=== PATIENT | male | born 1970 | race Caucasian/White ===

== ENCOUNTER 2020-10-19 08:00 | Outpatient (CLI) | payer BC ==
--- NOTE | 2020-10-19 16:10 | XRAY Report ---
PROCEDURE: Thoracic Spine 2 View INDICATIONS: THORACIC BACK PAIN TECHNIQUE: 3 views of the thoracic spine were acquired. COMPARISON: None. FINDINGS: Bones: No fractures or dislocations. No suspicious bony lesions. Visualized ribs are intact. Multil evel endplate osteophytes throughout the thoracic spine are present. Soft tissues: No paravertebral stripe thickening. IMPRESSION: Multilevel degenerative disc disease. No acute fracture. No osseous lesion. If symptoms and/or clinic al suspicion for pathology continue, further assessment with repeat plain films, or advanced imaging (e.g., CT, MRI, or bone scan) is recommended for further assessment. Reviewed by: Jacquelyn Woo MD on 10/19/2020 4:08 PM PDT Approved by: Jacquelyn Woo MD on 10/19/2020 4:08 PM PDT Station ID: [id number]
== END 2020-10-19 23:59 | disposition home or self-care (01) ==
LOC: DI.S 08:00
PROVIDERS: ATTEND Emergency Medicine
DX: M51.34 Other intervertebral disc degeneration, thoracic region (principal)

== ENCOUNTER 2023-03-28 08:00 | Outpatient (CLI) | payer BC, OTHER ==
--- NOTE | 2023-03-28 20:30 | XRAY Report ---
PROCEDURE: Knee 4 View LT INDICATIONS: LEFT KNEE PAIN TECHNIQUE: 2 views of the knee was obtained. COMPARISON: None FINDINGS: Bones: No fractures or dislocations. No suspicious bony lesions. Soft tissues: Moderate knee joint effusion. No suspicious soft tissue calcifications or masses. IMPRESSION: Moderate joint effusion Reviewed by: Hunter Isidro MD on 03/28/2023 7:29 PM AKDT Approved by: Hunter Isidro MD on 03/28/2023 7:29 PM AKDT Station ID: [id number]
== END 2023-03-28 23:59 | disposition home or self-care (01) ==
LOC: DI.S 08:00
PROVIDERS: ATTEND Physician Assistant
DX: M25.562 Pain in left knee (principal); M25.462 Effusion, left knee

== ENCOUNTER 2023-06-27 10:20 | Outpatient (CLI) | payer OTHER ==
[2023-06-27 15:12] LABS: BASOPHILS # (AUTO) 0.1 10^3/uL (0.0-0.1); EOSINOPHILS # (AUTO) 0.3 10^3/uL (0.0-0.7); EOSINOPHILS % (AUTO) 5.7 %; HCT - HEMATOCRIT 47.2 % (42.0-52.0); HGB - HEMOGLOBIN 15.6 g/dL (14.0-18.0); LYMPHOCYTES # (AUTO) 1.5 10^3/uL (1.5-3.5); LYMPHOCYTES % (AUTO) 24.5 %; MEAN CORPUSCULAR HEMOGLOBIN 31.1 pg (27.0-31.0); MEAN CORPUSCULAR HGB CONC 33.1 g/dL (32.0-36.0); MEAN PLATELET VOLUME 11.3 fL (7.4-11.4); MONOCYTES # (AUTO) 0.7 10^3/uL (0.0-1.0); NEUTROPHILS # (AUTO) 3.4 10^3/uL (1.5-6.6); NEUTROPHILS % (AUTO) 57.3 %; PLT - PLATELET COUNT 143 10^3/uL (130-450); RED BLOOD COUNT 5.02 10^6/uL (4.70-6.10); RED CELL DISTRIBUTION WIDTH 12.6 % (12.0-15.0); WHITE BLOOD COUNT 5.9 x10^3/uL (4.8-10.8)
[2023-06-27 15:32] LABS: ALBUMIN 4.6 g/dL (3.2-5.5); ALBUMIN/GLOBULIN RATIO 1.8 (1.0-2.2); ALKALINE PHOSPHATASE 54 IU/L (42-121); ALT ALANINE AMINOTRANSFERASE 24 IU/L (10-60); AST ASPARTATE AMINOTRANSFERASE 31 IU/L (10-42); BILIRUBIN,TOTAL 0.6 mg/dL (0.2-1.0); BUN - BLOOD UREA NITROGEN 22 mg/dL (6-20); CALCIUM 9.7 mg/dL (8.5-10.3); CARBON DIOXIDE - CO2 29 mmol/L (21-32); CHLORIDE 105 mmol/L (101-111); CHOL/HDL RATIO 3.8 (<5.0); CHOLESTEROL 184 mg/dL; CREATININE 1.3 mg/dL (0.6-1.3); GFR - MDRD 58 (>89); GLUCOSE 100 mg/dL (74-104); HDL CHOLESTEROL 49 mg/dL; LDL CHOLESTEROL,CALCULATED 123 mg/dL; LDL/HDL RATIO 2.5 (<3.6); POTASSIUM 4.4 mmol/L (3.5-4.5); SODIUM 138 mmol/L (135-145); TOTAL PROTEIN 7.1 g/dL (6.4-8.9); TRIGLYCERIDES 59 mg/dL (48-352); VLDL CHOLESTEROL 12 mg/dL
[2023-06-27 15:48] LABS: THYROID STIMULATING HORMONE 1.12 uIU/mL (0.34-5.60)
[2023-06-27 20:45] LABS: ESTIMATED AVERAGE GLUCOSE 103 mg/dL (70-100); HEMOGLOBIN A1c% 5.2 % (4.27-6.07)
== END 2023-06-27 10:21 | disposition home or self-care (01) ==
LOC: LAB.S 10:20
PROVIDERS: ATTEND Physician Assistant Medical
DX: Z13.9 Encounter for screening, unspecified (principal)
CPT/HCPCS: 36415; 80053; 80061; 83036; 83721; 84153; 84443; 85025

== ENCOUNTER 2023-10-20 11:19 | Day surgery (SDC) | payer OTHER ==
[2023-10-20] MEDS: LACTATED RINGERS 1,000 ML IV ONE ×2 (11:24→13:55)
--- NOTE | 2023-10-20 12:03 | ANESTHESIA ---
Pre-Anesthesia VS, & Labs - Diagnosis screening - Procedure colonoscopy Height: 6 ft 1 in Weight (kg): 104.8 kg Body Mass Index: 30.4 BMI Classification: Obese - NPO Other (prep as directed) Home Medications and Allergies Home Medications: Ambulatory Orders Dextroamphetamine/Amphetamine [Adderall Xr 10 mg Capsule] 20 mg ORAL DAILY 10/18 Dextroamphetamine/Amphetamine [Adderall Xr 10 mg Capsule] 20 mg ORAL DAILY 10/19/23 Allergies/Adverse Reactions: Allergies Allergy/AdvReac Type Severity Reaction Status Date / Time No Known Drug Allergies Allergy Verified 10/19/23 13:46 Anes History & Medical History - Anesthetic History Anesthesia Complications: reports: No previous complications - Medical History Cardiovascular: reports: None Pulmonary: reports: Sleep apnea Gastrointestinal: reports: None Urinary: reports: None Musculoskeletal: reports: None Endocrine/Autoimmune: reports: None Skin: reports: Other Smoking Status: Never smoker Psychosocial: reports: Alcohol (one a week) - Surgical History Orthopedic: reports: ACL reconstruction, Arthroscopic surgery Exam General: Alert, Oriented x3 Dental: WNL Mouth Opening: Greater than 4 Fingerbreadths Neck Mobility: Normal Mallampati classification: II Thyromental Distance: greater than 6 cm Respiratory: Lungs clear Cardiovascular: Regular rate Plan Anesthesia Type: Total IV Consent for Procedure(s) Verified and Reviewed: Yes Code Status: Attempt Resuscitation ASA classification: 2-Mild systemic disease Is this case an emergency?: No
[2023-10-20] MEDS ORDERED: LIDOCAINE-MPF 2% 5 ML VIAL ONE (13:05)
[2023-10-20] MEDS ORDERED: PROPOFOL 500 MG/50 ML 500 MG/50 ML VIAL ONE ×2 (13:05→13:33)
--- NOTE | 2023-10-20 13:12 | HISTORY & PHYSICAL EXAMINATION ---
Chief Complaint - Chief Complaint Chief Complaint: here for colonoscopy History of Present Illness - History Obtained From Records Reviewed: yes History obtained from: pt Exam Limitations: none - History of Present Illness HPI Comment/Other: here for first time colonoscopy. no anemia, gi symptoms, family hx colon ca. History - Past Medical History Cardiovascular: reports: None Respiratory: reports: Sleep apnea Endocrine/Autoimmune: reports: None GI: reports: None : reports: None HEENT: reports: None Psych: reports: Panic attacks, ADD/ADHD Musculoskeletal: reports: None Derm: reports: Other MRSA Hx?: Yes - Past Surgical History Ortho: reports: ACL reconstruction, Arthroscopic surgery Meds/Allgy - Home Medications Home Medications: Ambulatory Orders Medication Instructions Recorded Confirmed Dextroamphetamine/Amphetamine 20 mg ORAL DAILY 10/19/23 10/19/23 [Adderall Xr 10 mg Capsule] - Allergies Allergies/Adverse Reactions: Allergies Allergy/AdvReac Type Severity Reaction Status Date / Time No Known Drug Allergies Allergy Verified 10/19/23 13:46 Review of Systems - Other Findings Other Findings: 10 pt ros as above otherwise unremarkable Exam - Physical Exam General Appearance: positive: No acute distress, Alert Eyes Bilateral: positive: PERRL ENT: positive: No signs of dehydration Neck: positive: No JVD, Trachea midline Respiratory: positive: No respiratory distress Cardiovascular: positive: Regular rate & rhythm Abdomen: positive: No distention Neurologic/Psychiatric: positive: Oriented x3 Conclusion/Plan - Problem List (1) Colon cancer screening Conclusion/Plan: plan colonoscopy. parq held and consent obtained
[2023-10-20 14:09] VITALS: O2SAT 100
[2023-10-20 14:29] VITALS: BP 128/86
--- NOTE | 2023-10-20 15:30 | ANESTHESIA POST OP EVALUATION ---
Anesthesia Post Eval - Post Anesthesia Eval Vitals: Last Vital Signs Temp 36.5 C 10/20/23 13:55 Pulse 74 10/20/23 14:10 Resp 19 10/20/23 14:10 BP 128/86 H 10/20/23 14:10 Pulse Ox 100 10/20/23 14:10 O2 Flow Rate CV Function Including HR & BP: Stable Pain Control: Satisfactory Nausea & Vomiting: Negative Mental Status: Baseline Respiratory Status: Airway Patent Hydration Status: Satisfactory Anesthesia Complications: None
== END 2023-10-20 11:20 | disposition home or self-care (01) ==
LOC: SDS 11:19
PROVIDERS: ATTEND Surgery
DX: Z12.11 Encounter for screening for malignant neoplasm of colon (principal); G47.30 Sleep apnea, unspecified; E66.9 Obesity, unspecified; Z68.30 Body mass index [BMI] 30.0-30.9, adult
CPT/HCPCS: 45378; J7120

== ENCOUNTER 2023-10-22 09:49 | Outpatient (CLI) | payer OTHER | END 2023-10-22 23:59 | disposition critical access hospital (66) | LOC: EMS 09:49 | DX: M54.50 Low back pain, unspecified (principal); Z74.09 Other reduced mobility | CPT/HCPCS: A0425; A0427 ==

== ENCOUNTER 2023-10-22 10:34 | Emergency (ER) | payer OTHER ==
[2023-10-22] MEDS: methocarbamoL 500 MG TABLET PO STA (11:38)
[2023-10-22] MEDS: KETOROLAC 30 MG/ML VIAL IVP STA (11:39)
[2023-10-22] MEDS: HYDROmorphone 1 MG/ML CARPUJECT IVP STA (11:39)
[2023-10-22] MEDS: DEXAMETHASONE 10 MG/ML VIAL IVP STA (11:39)
--- NOTE | 2023-10-22 11:40 | ED Physician Documentation ---
PD HPI BACK PAIN - Stated complaint Stated Complaint: LOW BACK PX - Chief complaint Chief Complaint: Back Pain - History obtained from History obtained from: Patient, EMS - History of Present Illness Timing - onset: Yesterday Timing - duration: Other (yesterday) Timing - details: Abrupt onset Pain level max: 9 Pain level now: 9 Location: Lower, Right Quality: Pain, Spasm, Similar to prior episodes Associated symptoms: No: Fever, Weakness, Numbness, Incontinent of urine, Unable to urinate, Hematuria, Incontinent of stool Improves with: Rest Worsened by: Movement Contributing factors: No: Trauma, Anticoagulated, Cancer, IVDA - Additional information Additional information: 53-year-old male states that he has a history of chronic back issues, states that occasionally his back will "act up". Patient states that he was picking up a piece of trash yesterday when he felt a spasm in his back. He states that the pain did not go away with Tylenol with codeine at home. Worse with movement, nothing makes it better. No loss of bowel or bladder control. He states pain is worse with sitting as well. No numbness or tingling. No focal neurological deficits Review of Systems Constitutional: denies: Fever, Chills Respiratory: denies: Cough Skin: denies: Rash Musculoskeletal: denies: Neck pain, Back pain Neurologic: denies: Headache PD PAST MEDICAL HISTORY - Past Medical History Past Medical History: Yes Cardiovascular: None Respiratory: Sleep apnea Neuro: None Endocrine/Autoimmune: None GI: None : None HEENT: None Psych: Panic attacks, ADD/ADHD Musculoskeletal: Chronic back pain Derm: Other - Past Surgical History Past Surgical History: Yes General: Colonoscopy Ortho: ACL reconstruction, Arthroscopic surgery - Present Medications Home Medications: Ambulatory Orders Medication Instructions Recorded Confirmed Dextroamphetamine/Amphetamine 20 mg ORAL DAILY 10/19/23 10/22/23 [Adderall Xr 10 mg Capsule] Meloxicam [Mobic] 7.5 mg PO BID PRN #20 tablet 10/22/23 Oxycodone HCl/Acetaminophen 1 - 2 each PO Q6H PRN #14 tablet 10/22/23 [Percocet 5-325 mg Tablet] MDD 6 tabs methocarbamoL [Robaxin] 500 mg PO Q6H PRN #20 tablet 10/22/23 predniSONE [Deltasone] 10 mg PO [id number] #42 tab 10/22/23 - Allergies Allergies/Adverse Reactions: Allergies Allergy/AdvReac Type Severity Reaction Status Date / Time No Known Drug Allergies Allergy Verified 10/22/23 10:39 - Social History Does the pt smoke?: No Smoking Status: Former smoker Does the pt drink ETOH?: Yes Does the pt have substance abuse?: Yes Substance Use and Type: CBD oil / Products - Immunizations Immunizations are current?: Yes - POLST Patient has POLST: No PD ED PE NORMAL - Vitals Vital signs reviewed: Yes - General General: Alert and oriented X 3, No acute distress - HEENT HEENT: PERRL, Moist mucous membranes - Neck Neck: Supple, no meningeal sign - Cardiac Cardiac: RRR, Strong equal pulses - Respiratory Respiratory: No respiratory distress, Clear bilaterally - Abdomen Abdomen: Soft, Non tender, Non distended - Back Back: No spinal TTP, Other (No midline tenderness to palpation or percussion. No step-off or deformity. There is paraspinal spasm right lower lumbar. Tenderness over the right SI joint as well.) - Derm Derm: Warm and dry - Extremities Extremities: No edema, No calf tenderness / cord - Neuro Neuro: Alert and oriented X 3, clinic nurse 2-12 intact, No motor deficit, No sensory d eficit, Normal speech, Other (Normal bilateral lower extremity patellar and ankle jerk reflexes. Normal great toe extension bilaterally. no saddle anesthesia) Eye Opening: Spontaneous Motor: Obeys Commands Verbal: Oriented GCS Score: 15 - Psych Psych: Normal mood, Normal affect Results - Vitals Vitals: Vital Signs - 24 hr 10/22/23 10/22/23 10:39 12:44 Temperature 36.2 C L Heart Rate 69 66 Respiratory 16 18 Rate Blood Pressure 160/101 H 143/93 H O2 Saturation 100 96 Oxygen O2 Source Room air PD Medical Decision Making - ED course Complexity details: re-evaluated patient, considered differential (No cauda equina, no spinal epidural abscess, no fracture, no aortic dissection or evidence of aneursym rupture), d/w patient ED course: 53-year-old male with what appears to be sciatica and back spasm. Given Dilaudid and Toradol IV. Also given dexamethasone IV. Robaxin orally. Pain greatly improved. He states that he is now able to move and feels comfortable going home at this time. Will prescribe pain medication, anti-inflammatory medication and steroids for home. No indication for emergent imaging. Patient will follow-up with his PCP for further care. No evidence of cauda equina, epidural abscess. No red flags. Patient counseled regarding signs and symptoms for which I believe and urgent re-evaluation would be necessary. Patient with good understanding of and agreement to plan and is comfortable going home at this time This document was made in part using voice recognition software. While efforts are made to proofread this document, sound alike and grammatical errors may occur. Departure - Departure Disposition: 01 Home, Self Care Clinical Impression: Back spasm Sciatica Qualifiers: Laterality: right Qualified Code(s): M54.31 - Sciatica, right side Condition: Good Instructions: ED Spasm Back No Trauma, ED Sciatica Follow-Up: Cheri Askew PA [Primary Care Provider] - Within 1 week Prescriptions: predniSONE [Deltasone] 10 mg PO [id number] #42 tab Meloxicam [Mobic] 7.5 mg PO BID PRN #20 tablet PRN Reason: Pain Oxycodone HCl/Acetaminophen [Percocet 5-325 mg Tablet] 1 - 2 each PO Q6H PRN #14 tablet MDD 6 tabs PRN Reason: pain methocarbamoL [Robaxin] 500 mg PO Q6H PRN #20 tablet PRN Reason: muscle spasm Comments: [facility] [place]. Please use the pain medication and muscle relaxants as needed for pain. The steroid taper will help to decrease the inflammation in your back. Please follow-up with your doctor for further care. Please return if you worsen. Continue gentle stretching at home. I am prescribing a short course of narcotic pain medication for you. These are potentially dangerous and addictive medications that should be used carefully. These medications may constipate you. Take an [id number] stool softener (docusate) twice daily with plenty of water while taking these medications. If you go 24 hours without a bowel movement, take [id number] miralax, per package instructions. Do not drink or drive while taking these medications. If you received narcotic or sedating medications while in the emergency department, do not drive for 24 hours. Store this medication in a safe, secure place and out of reach of children. It is a violation of federal law to give or sell this medication to another person or to use in a manner other than prescribed. The ED will not refill narcotic prescriptions, including prescriptions lost or stolen. To dispose of unwanted medications: 1. [facility] [address] [facility] [place] has a medication drop box. They accept prescription medications (in pill form) Monday through Monday 9:00 a.m. to 5:00 p.m. 2. The [facility] accepts prescription medications (in pill form only) for disposal year round. Call for more information. 3. Contact the [facility] for the next [facility] sponsored prescription drug collection event. , [phone], or [phone]; Discharge Date/Time: 10/22/23 12:44
[2023-10-22 12:51] VITALS: BP 143/93; O2SAT 96
== END 2023-10-22 12:44 | disposition home or self-care (01) ==
LOC: EDUNIT# → ED 10:34
DX: M62.830 Muscle spasm of back (principal); M54.31 Sciatica, right side; Z87.891 Personal history of nicotine dependence
CPT/HCPCS: 96374; 99283; A9270; J1170